=== PATIENT | female | born 1970 | race Hispanic/Latino ===

== ENCOUNTER 2021-08-28 19:08 | Emergency (ER) | payer OTHER ==
[~2021-08-28] VITALS: Ht 154.9 cm; Wt 68.0 kg
[2021-08-28] MEDS ORDERED: HYDROCODONE/APAP 5MG-325MG TAB PO STA (20:00)
== END 2021-08-28 21:35 | disposition home or self-care (01) ==
LOC: ER 19:30
DX: S93.402A Sprain of unspecified ligament of left ankle, initial encounter (principal); W10.9XXA Fall (on) (from) unspecified stairs and steps, initial encounter; Y93.01 Activity, walking, marching and hiking; Y92.89 Other specified places as the place of occurrence of the external cause
CPT/HCPCS: 99283